=== PATIENT | male | born 1945 | race Caucasian/White ===

== ENCOUNTER 2017-09-24 12:43 | Emergency (ER) | payer OTHER, MEDICARE ==
--- NOTE | 2017-09-24 13:46 | ER Document Report ---
ED GI/ - General Chief Complaint: Diarrhea Stated Complaint: DIARRHEA Time Seen by Provider: 09/24/17 13:46 Mode of Arrival: Ambulatory Information source: Patient Notes: 71 yo [place] [facility]. smoker, arrythmia, AAA, hearing loss, HTN, arterial occlusion right leg (even post revascularization that failed) male with watery diarrhea without blood since 09-07-17 with prior cramping. 6 tpday. No hx C Diff, no antiobiotics, no travel outside [place]. Was in [place] 11-03. Zoloft increased to 200mg daily, 3 days later the diarrhea started. Self tapering the Zoloft and the diarrhea has not improved- only 50mg past 3 days. Stomach bubbling. FHx. stomach cancer. Labs 5-30 at the [facility]. Hx. diverticulosis. PE. - Related Data Allergies/Adverse Reactions: simvastatin [From Zocor] Allergy (Intermediate, Verified 09/24/17 13:40) weakness Past Medical History - General Information source: Patient - Social History Smoking Status: Current Every Day Smoker Chew tobacco use (# tins/day): No Frequency of alcohol use: None Drug Abuse: None Lives with: Alone Family History: Reviewed & Not Pertinent Patient has suicidal ideation: No Patient has homicidal ideation: No - Past Medical History Cardiac Medical History: Reports: Hx Hypercholesterolemia, Hx Hypertension Pulmonary Medical History: Reports: Hx COPD Renal/ Medical History: Denies: Hx Peritoneal Dialysis GI Medical History: Reports: Hx Gastroesophageal Reflux Disease Past Surgical History: Reports: Hx Abdominal Surgery - Hernia Repair, Hx Appendectomy, Hx Orthopedic Surgery - 2007 back surgery, Hx Vascular Surgery - femoral artery bypass - Immunizations Hx Diphtheria, Pertussis, Tetanus Vaccination: No - 2009 Review of Systems - Review of Systems Constitutional: No symptoms reported EENT: No symptoms reported Cardiovascular: No symptoms reported Respiratory: No symptoms reported Gastrointestinal: See HPI Genitourinary: No symptoms reported Male Genitourinary: No symptoms reported Musculoskeletal: No symptoms reported Skin: No symptoms reported Hematologic/Lymphatic: No symptoms reported Neurological/Psychological: No symptoms reported Physical Exam - Vital signs Vitals: Temp Pulse Resp BP Pulse Ox 98.6 F 71 16 145/75 H 94 09/24/17 13:07 09/24/17 13:07 09/24/17 13:07 09/24/17 13:07 09/24/17 13:07 Interpretation: Normal - General General appearance: Appears well, Alert - HEENT Head: Normocephalic, Atraumatic Eyes: Normal Pupils: PERRL Neck: Supple. No: Lymphadenopathy - Respiratory Respiratory status: No respiratory distress Chest status: Nontender Breath sounds: Normal Chest palpation: Normal - Cardiovascular Rhythm: Regular Heart sounds: Normal auscultation Murmur: No - Abdominal Inspection: Normal Distension: No distension Bowel sounds: Hyperactive Tenderness: Tender - minimal LLQ Organomegaly: No organomegaly. No: Hepatomegaly, Splenomegaly - Back Back: Normal, Nontender. No: CVA tenderness - Extremities General upper extremity: Normal inspection, Nontender, Normal color, Normal ROM , Normal temperature General lower extremity: Normal inspection, Nontender, Normal color, Normal ROM , Normal temperature, Normal weight bearing. No: Ricardo's sign - Neurological Neuro grossly intact: Yes Cognition: Normal Orientation: AAOx4 [place] Coma Scale Eye Opening: Spontaneous Roby Coma Scale Verbal: Oriented Roby Coma Scale Motor: Obeys Commands Roby Coma Scale Total: 15 Speech: Normal Motor strength normal: LUE, RUE, LLE, RLE Sensory: Normal - Psychological Associated symptoms: Normal affect, Normal mood - Skin Skin Temperature: Warm Skin Moisture: Dry Skin Color: Normal Skin irregularity: negative: Rash Course - Vital Signs Vital signs: Temp Pulse Resp BP Pulse Ox 98.6 F 71 16 145/75 H 94 09/24/17 13:07 09/24/17 13:07 09/24/17 13:07 09/24/17 13:07 09/24/17 13:07 - Laboratory Result Diagrams: 09/24/17 15:10 09/24/17 15:10 Laboratory results interpreted by me: 09/24/17 09/24/17 09/24/17 15:10 15:10 15:10 RDW 15.0 H PT 26.7 H Chloride 110 H BUN 23 H Discharge - Discharge Clinical Impression: right renal cysts Diarrhea Qualifiers: Diarrhea type: unspecified type Qualified Code(s): R19.7 - Diarrhea, unspecified Condition: Good Disposition: HOME, SELF-CARE Instructions: Diarrhea, Nonspecific ([facility]), Ciprofloxacin ([facility]) Additional Instructions: Your CT scan showed right renal cysts that need to be further evaluated by a dedicated renal MRI or CT follow-up. Please discuss this with the [facility]. I have given you the results of the CT that we will put the images on a CD for you to take to the [facility]. Copy of lab were given to you Your INR is 2.33 which is therapeutic range for you Cipro for 3 days for possible infectious diarrhea. Return to the emergency room if symptoms worsen see the [id number] for follow up if this persists Prescriptions: Ciprofloxacin HCl [Cipro 500 mg Tablet] 500 mg PO BID #6 tablet Referrals: GLENNA AGUILAR MD [ACTIVE STAFF] - Follow up as needed
[2017-09-24 15:32] LABS: ABSOLUTE BASOPHILS # (AUTO) 0.1 10^3/uL (0.0-0.2); ABSOLUTE EOSINOPHILS # (AUTO) 0.2 10^3/uL (0.0-0.6); ABSOLUTE LYMPHOCYTES (AUTO) 1.4 10^3/uL (0.5-4.7); ABSOLUTE MONOCYTES (AUTO) 0.6 10^3/uL (0.1-1.4); EOSINOPHILS % (AUTO) 2.7 % (0-6); HEMATOCRIT 44.8 % (37.9-51.0); HEMOGLOBIN 15.2 g/dL (13.5-17.0); LYMPHOCYTES % (AUTO) 19.2 % (13-45); MEAN CORPUSCULAR HGB CONC 33.8 g/dL (32.0-36.0); MEAN CORPUSCULAR VOLUME 92 fl (80-97); MONOCYTES % (AUTO) 8.1 % (3-13); PLATELET COUNT 263 10^3/uL (150-450); TOTAL CELLS COUNTED % (AUTO) 100 %; WHITE BLOOD COUNT 7.3 10^3/uL (4.0-10.5)
[2017-09-24 15:37] LABS: INTERNATIONAL RATION (INR) 2.33; PROTHROMBIN TIME 26.7 SEC (11.4-15.4)
[2017-09-24 15:51] LABS: ALANINE AMINOTRANSFERASE 52 U/L (21-72); ALBUMIN 4.2 g/dL (3.5-5.0); ALKALINE PHOSPHATASE 56 U/L (38-126); ANION GAP 7 (5-19); ASPARTATE AMINO TRANSFERASE 41 U/L (17-59); BILIRUBIN,DIRECT 0.3 mg/dL (0.0-0.4); BILIRUBIN,TOTAL 0.3 mg/dL (0.2-1.3); BLOOD UREA NITROGEN 23 mg/dL (7-20); CALCIUM 9.6 mg/dL (8.4-10.2); CARBON DIOXIDE 26 mmol/L (22-30); CHLORIDE 110 mmol/L (98-107); GLUCOSE 90 mg/dL (75-110); POTASSIUM 4.2 mmol/L (3.6-5.0); SODIUM 143.4 mmol/L (137-145); TOTAL PROTEIN 7.5 g/dL (6.3-8.2)
--- NOTE | 2017-09-24 17:08 | RADIOLOGY REPORT (SQ) ---
EXAM DESCRIPTION: CT ABD/PELVIS WITH IV ONLY COMPLETED DATE/TIME: 09/24/2017 4:53 pm REASON FOR STUDY: LLQ pain, diarrhea COMPARISON: None. TECHNIQUE: CT scan of the abdomen and pelvis performed using helical scanning technique with dynamic intravenous contrast injection. No oral contrast. Images reviewed with lung, soft tissue, and bone windows. Reconstructed coronal and sagittal MPR images reviewed. Delayed images for evaluation of the urinary system also acquired. All images stored on PACS. All CT scanners at this facility use dose modulation, iterative reconstruction, and/or weight based d osing when appropriate to reduce radiation dose to as low as reasonably achievable (ALARA). [facility]: Dose Right [facility]: CareDose [facility]: Dose Right [facility]: Teradose 4D [facility]: Health [employer] Products CONTRAST TYPE AND DOSE: contrast/concentration: Isovue 370.00 mg/ml; Total Contrast Delivered: 99.0 ml; Total Saline Delivered: 72.0 ml RENAL FUNCTION: BUN 23 creatinine 1.2 RADIATION DOSE: CT Rad equipment meets quality standard of care and radiation dose reduction techniq ues were employed. CTDIvol: 16.1 - 18.7 mGy. DLP: 1897 mGy-cm.. LIMITATIONS: None. FINDINGS: LOWER CHEST: No significant findings. No nodules or infiltrates. LIVER: Normal size. No masses. No dilated ducts. SPLEEN: Normal size. No focal lesions. PANCREAS: No masses. No significant calcifications. No adjacent inflammation or peripancreatic fluid collections. Pancreatic duct not dilated. GALLBLADDER: No identified stones by CT criteria. No inflammatory changes to suggest cholecystitis. ADRENAL GLANDS: No significant masses or asymmetry. RIGHT KIDNEY AND URETER: Multiple cysts, the largest 10.7 cm lower pole. 8 cm cystic lesion upper po le and smaller lower pole lesion have some internal septations. No significant calcifications. No hydronephrosis or hydroureter. LEFT KIDNEY AND URETER: No solid masses. No significant calcifications. No hydronephrosis or hydr oureter. AORTA AND VESSELS: 3.5 cm infrarenal aortic aneurysm. RETROPERITONEUM: No retroperitoneal adenopathy, hemorrhage or masses. BOWEL AND PERITONEAL CAVITY: No masses or inflammatory changes. No free fluid or peritoneal masses. APPENDIX: Surgically absent. PELVIS: No mass. No free fluid. Normal bladder. ABDOMINAL WALL: Small umbilical hernia containing fat. BONES: No acute findings. OTHER: No other significant finding. IMPRESSION: 1. Several large right renal cysts. Two of the lesions have internal septations and will need dedica aren renal MRI or CT followup. 2. No acute findings in the abdomen or pelvis. TECHNICAL DOCUMENTATION: JOB ID: [id number] Quality ID # [id number]: Final reports with documentation of one or more dose reduction techniques (e.g., Au tomated exposure control, adjustment of the mA and/or kV according to patient size, use of iterative reconstruction technique) 2010 [employer]- All Rights Reserved Reading location - IP/workstation name: [email or web address]
[2017-09-24] MEDS ORDERED: CIPROFLOXACIN HCL 500 MG TABLET PO ONE (17:55)
[2017-09-24 18:37] VITALS: BP 139/86
== END 2017-09-24 18:39 | disposition home or self-care (01) ==
LOC: ER 12:43
DX: N28.1 Cyst of kidney, acquired (principal); R19.7 Diarrhea, unspecified; F17.200 Nicotine dependence, unspecified, uncomplicated; I10 Essential (primary) hypertension; E78.00 Pure hypercholesterolemia, unspecified; J44.9 Chronic obstructive pulmonary disease, unspecified; K21.9 Gastro-esophageal reflux disease without esophagitis; Z95.1 Presence of aortocoronary bypass graft
CPT/HCPCS: 36415; 74177; 80053; 82272; 85025; 85610; 99284

== ENCOUNTER → 2018-10-15 | Outpatient (CLI) | payer OTHER | LOC: SP 09:32 | PROVIDERS: ATTEND Clinical Nurse Specialist Adult Health | DX: I73.9 Peripheral vascular disease, unspecified (principal) | CPT/HCPCS: 93925 ==

== ENCOUNTER → 2020-01-29 | Outpatient (CLI) | payer OTHER ==
--- NOTE | 2020-01-29 15:09 | RADIOLOGY REPORT (SQ) ---
EXAM DESCRIPTION: CT LUNG CANCER SCREENING IMAGES COMPLETED DATE/TIME: 01/29/2020 10:27 am REASON FOR STUDY: Z12.2 ENCNTR SCREEN FOR MALIGNANT NEOPLASM OF RESPIRATORY ORGANS Z12.2 ENCNTR SCR EEN FOR MALIGNANT NEOPLASM OF RESPIRATORY OR Has the patient had a Chest CT scan within the past year? N Was the patient offered tobacco cessation counseling? N Was the patient engaged in shared decision making for this test? Y Does the patient have signs or symptoms of Lung Cancer? N Is the patient a smoker? N How many pack years? 51 How many years since quitting smoking? 1 Patients age: 74 COMPARISON: 09/03/2011 TECHNIQUE: Low Dose CT scan performed of the chest without intravenous contrast for purposes of scre ening for lung cancer. Images reviewed with lung, soft tissue and bone windows. Reconstructed coron al and sagittal MPR images reviewed. All images stored on PACS. All CT scanners at this facility use dose modulation, iterative reconstruction, and/or weight based d osing when appropriate to reduce radiation dose to as low as reasonably achievable (ALARA). [facility]: Dose Right [facility]: CareDose [facility]: Dose Right [facility]: Teradose 4D [facility]: Smart [employer] RADIATION DOSE: CT Rad equipment meets quality standard of care and radiation dose reduction techniq ues were employed. CTDIvol: NaN mGy. DLP: 0 mGy-cm. mGy. . LIMITATIONS: No technical limitations. FINDINGS: LUNG NODULES: Description: Right upper lobe, solid, axial image 112 Size: 5 x 3 x 3 mm Description: Right middle lobe, solid, axial image 172 Size: 7 x 4 x 3 mm Description: Right lower lobe, solid, axial image 211 Size: 5 x 5 x 5 mm Description: Right lower lobe, solid, axial image 211 Size: 3 x 3 x 4 mm Description: Left lower lobe, solid, axial image 217 Size: 4 x 6 x 5 mm REMAINING LUNGS AND PLEURA: Incidental note is made of a right upper lobe calcified granuloma. No pleural thickening or calcification No pneumothorax. There is scarring involving the right lower lobe within area of previous dense consolidation. Bibasilar scarring is likewise noted. Background of centrilobular emphysematous changes. HILAR AND MEDIASTINAL STRUCTURES: No identified masses or abnormal nodes. Calcified right hilar lymp h nodes, consistent with sequela previous granulomatous process. HEART AND VASCULAR STRUCTURES: No aortic aneurysm. No pericardial effusion. No cardiac devices. CORONARY ARTERY CALCIFICATIONS: Moderate coronary artery calcifications are demonstrated. UPPER ABDOMEN, THYROID, BONES, OTHER SOFT TISSUES: Limited examination. Right renal cystic mass with peripheral calcifications, similar to that seen on comparison CT imaging performed 09/24/2017. IMPRESSION: BENIGN FINDINGS IN THE LUNGS. NO OTHER CLINICALLY SIGNIFICANT/POTENTIALLY CLINICALLY SIGNIFICANT FINDINGS LUNGRADS: LUNGRADS: 2 BENIGN APPEARANCE OR BEHAVIOR. NODULES WITH A VERY LOW LIKELIHOOD OF BECOMING A CLINICALLY ACTIVE CANCER DUE TO SIZE OR LACK OF GROWTH. MODIFIER: NONE. RECOMMENDATION: Continue annual screening with LDCT in 12 months. COMMENT: CRITERIA: Solid nodule(s): < 6 mm; new < 4 mm. Part solid nodule(s): < 6 mm total diameter on baseline screening. Non solid nodule(s) (GGN): < 20 mm OR ? 20 and unchanged or slowly growing. Category 3 or 4 nodules unchanged for ? 3 months. TECHNICAL DOCUMENTATION: JOB ID: [id number] Quality ID # [id number]: Final reports with documentation of one or more dose reduction techniques (e.g., Au tomated exposure control, adjustment of the mA and/or kV according to patient size, use of iterative reconstruction technique) 2010 [facility] Reading location - IP/workstation name: [email or web address]
== END ==
LOC: RAD 09:51
PROVIDERS: ATTEND Clinical Nurse Specialist Adult Health
DX: Z12.2 Encounter for screening for malignant neoplasm of respiratory organs (principal); J84.10 Pulmonary fibrosis, unspecified; I25.10 Atherosclerotic heart disease of native coronary artery without angina pectoris
CPT/HCPCS: G0297

== ENCOUNTER → 2020-02-28 | Outpatient (CLI) | payer OTHER ==
--- NOTE | 2020-02-28 15:32 | RADIOLOGY REPORT (SQ) ---
EXAM DESCRIPTION: U/S RETROPERITON (RENAL/AORTA) IMAGES COMPLETED DATE/TIME: 02/28/2020 3:21 pm REASON FOR STUDY: KIDNEY CYST COMPARISON: None. TECHNIQUE: Dynamic and static grayscale images acquired of the kidneys and bladder and recorded on P ACS. Additional selected color Doppler and spectral images recorded. LIMITATIONS: None. FINDINGS: RIGHT KIDNEY: The right kidney measures 13 cm in length. Normal echogenicity. Multipl e cysts the largest measures 10 x 11 x 11 cm. There is a complex 8 x 8 x 7 cm cyst in the lower pole . These have been previously demonstrated on CT. No hydronephrosis. No calcifications. LEFT KIDNEY: The left kidney measures 9 cm in greatest length. Normal echogenicity. Simple 2 cm cyst in the upper pole which has slightly increased in size when compared to prior CT. No hydroneph rosis. No calcifications. BLADDER: No masses. OTHER FINDINGS: No other significant finding. IMPRESSION: Bilateral renal cysts. No other significant findings. TECHNICAL DOCUMENTATION: JOB ID: [id number] 2010 [employer]- All Rights Reserved Reading location - IP/workstation name: [email or web address]
--- NOTE | 2020-02-28 15:36 | RADIOLOGY REPORT (SQ) ---
EXAM DESCRIPTION: U/S RETROPERITON LTD IMAGES COMPLETED DATE/TIME: 02/28/2020 3:21 pm REASON FOR STUDY: KIDNEY CYST COMPARISON: CT dated 09/24/2017 TECHNIQUE: Static and dynamic grayscale images acquired of the aorta and stored on PACs. Selected co debra Doppler and spectral images recorded. LIMITATIONS: None. FINDINGS: AORTIC CALIBER MAXIMAL PROXIMAL: 2.7 x 2.7 cm. MID: 4.0 x 4.0 cm. DISTAL: 1.8 x 1.9 cm. ILIAC DIAMETER RIGHT: 1.0 cm. LEFT: 1.0 cm. OTHER: No other significant finding. IMPRESSION: 4 cm infrarenal abdominal aortic aneurysm. This is increased in size since 2018. Amanda potter see below for recommended follow-up. COMMENT: Aortic aneurysm imaging followup: 4.0-4.4 cm Recommended followup every 12 months and vascular consultation. *Based upon the ACR White Paper in the J Am Gabe Radiol 2013;10 (10):789-794. *For aortas of maximum diameter of 2.6-2.9 cm meeting the criteria for AAA (?1.5 x proximal normal se gment) TECHNICAL DOCUMENTATION: JOB ID: [id number] 2010 [employer]- All Rights Reserved Reading location - IP/workstation name: [email or web address]
== END ==
LOC: RAD 14:41
PROVIDERS: ATTEND Clinical Nurse Specialist Adult Health
DX: Z01.89 Encounter for other specified special examinations (principal); N28.1 Cyst of kidney, acquired; I71.4 Abdominal aortic aneurysm, without rupture; F41.9 Anxiety disorder, unspecified
CPT/HCPCS: 76770; 76775